=== PATIENT | female | born 1970 | race Caucasian/White ===

== ENCOUNTER 2021-12-25 08:34 | Day surgery (SDC) | payer OTHER, SELFPAY ==
[~2021-12-25] VITALS: Ht 154.9 cm; Wt 86.2 kg
[2021-12-25] MEDS ORDERED: ACETAMINOPHEN I.V. 1000 MG 100 ML IV ONE (11:30)
[2021-12-25] MEDS ORDERED: HYDROmorphone 1 MG/ML INJ. CARTRIDGE IVP PRN ×2 (12:45)
[2021-12-25] MEDS ORDERED: MEPERIDINE HCL/PF 25 MG/ML DISP.SYRIN IVP PRN (12:45)
[2021-12-25] MEDS ORDERED: METOCLOPRAMIDE HCL 10 MG/2 ML VIAL IVP PRN (12:45)
[2021-12-25] MEDS ORDERED: LR 1,000 ML IV SCH (12:45)
[2021-12-25] MEDS ORDERED: hydrALAZINE HCL 20 MG/ML VIAL IVP PRN (12:45)
[2021-12-25] MEDS ORDERED: MIDAZOLAM HCL 2 MG/2 ML VIAL (VERSED) IVP PRN (12:45)
[2021-12-25] MEDS ORDERED: LABETALOL 100 MG/ 20ML VIAL IVP PRN (12:45)
[2021-12-25] MEDS ORDERED: DEXAMETHASONE SOD PHOSPHATE 4 MG/ML VIAL ONE (13:48)
[2021-12-25] MEDS ORDERED: LR 1,000 ML IV.SOLN IV ONE (13:48)
[2021-12-25] MEDS ORDERED: NS IRRIG SOLN 1000 ML IR ONE (13:48)
[2021-12-25] MEDS ORDERED: OXYMETAZOLINE HCL 0.05% NASAL SPRAY NS ONE (13:48)
[2021-12-25] MEDS ORDERED: LIDOCAINE/EPI 1% 1:100000 20 ML VIAL INJ ONE (13:48)
[2021-12-25] MEDS ORDERED: PROPOFOL 200MG/ 20ML VIAL (DIPRIVAN) IV ONE (13:48)
[2021-12-25] MEDS ORDERED: METOPROLOL TARTRATE 5 MG/5 ML AMPUL ONE (13:48)
[2021-12-25] MEDS ORDERED: SUGAMMADEX SODIUM 200 MG/2 ML VIAL IV ONE (13:48)
[2021-12-25] MEDS ORDERED: ONDANSETRON HCL 4 MG/2 ML VIAL ONE (13:48)
[2021-12-25] MEDS ORDERED: MUPIROCIN 2% TOPICAL OINTMENT 22 GM ONE (13:48)
[2021-12-25] MEDS ORDERED: LIDOCAINE 2%, 20 ML MDV ONE (13:48)
[2021-12-25] MEDS ORDERED: ROCURONIUM BROMIDE 10 MG/ML (ZEMURON) ONE (13:48)
[2021-12-25] MEDS ORDERED: MIDAZOLAM HCL 5 MG/ML VIAL (VERSED) IV ONE (13:48)
[2021-12-25] MEDS ORDERED: NS 1000 ML IV.SOLN IV ONE (13:48)
[2021-12-25] MEDS ORDERED: DESFLURANE 15 MIN GAS INH ONE (13:48)
[2021-12-25] MEDS ORDERED: fentaNYL CITRATE 250 MCG/5 ML AMP ONE (13:48)
[2021-12-25 15:50] VITALS: BP_SYST 134
== END 2021-12-25 15:30 | disposition home or self-care (01) ==
LOC: STU 08:34 → SDS 08:34
PROVIDERS: ATTEND Otolaryngology
DX: J34.89 Other specified disorders of nose and nasal sinuses (principal); D38.5 Neoplasm of uncertain behavior of other respiratory organs; J01.90 Acute sinusitis, unspecified; I10 Essential (primary) hypertension; G47.33 Obstructive sleep apnea (adult) (pediatric); Z99.89 Dependence on other enabling machines and devices; J30.1 Allergic rhinitis due to pollen; K21.9 Gastro-esophageal reflux disease without esophagitis; Z79.899 Other long term (current) drug therapy
CPT/HCPCS: 30140; 30520; 36415; 87426; 88304; 88311; J0131; J1100; J2001; J2250; J2405; J2704; J3010; J3465; J3490 ×2; J7030; J7120; U0003; 88305